=== PATIENT | female | born 1940 | race Caucasian/White ===

== ENCOUNTER 2017-01-18 12:21 | Emergency (ER) | payer OTHER ==
[~2017-01-18] VITALS: Ht 162.6 cm; Wt 68.0 kg
[2017-01-18 12:35] VITALS: BP 67/43; PULSE 61; RESP 16; TEMP 97.6; O2SAT 94
--- NOTE | 2017-01-18 12:45 | NUR ---
# 20 gauge angiocath placed to LFA. Use of asceptic technique. Opsite placed over site. Blood return noted. Blood for lab drawn from site. Flushed with 10 cc of normal saline. No evidence of infiltration noted. Patient tolerated well.
--- NOTE | 2017-01-18 12:45 | NUR ---
Pt placed to ER bed 04 and to gown. Pt report received from ELLIE Goncalves. Pt c/o Left foot injury s/p dropping a jar of peanut butter on foot. Swellin to site, no deformity noted. Pt placed on wire tinner and pt noted to be hypotensive. Pt asymmptomatic. AAOx4, denies dizzyness, denies LOC [employer]. Dr. Rolon notified of findings.
--- NOTE | 2017-01-18 12:45 | NUR ---
Note undone in EDM - 01/18/17 at 1644 by KATE # 18 gauge angiocath placed to LFA. Use of asceptic technique. Opsite placed over site. Blood return noted. Blood for lab drawn from site. Flushed with 10 cc of normal saline. No evidence of infiltration noted. Patient tolerated well.
--- NOTE | 2017-01-18 12:55 | NUR ---
Dr. Rolon at bedside to assess pt.
--- NOTE | 2017-01-18 13:10 | NUR ---
Note undone in EDM - 01/18/17 at 1643 by KATE # 18 gauge angiocath placed to LFA. Use of asceptic technique. Opsite placed over site. Blood return noted. Blood for lab drawn from site. Flushed with 10 cc of normal saline. No evidence of infiltration noted. Patient tolerated well.
[2017-01-18] MEDS ORDERED: NACL 0.9% 1,000 ML IV ONE ×3 (13:15)
[2017-01-18 13:33] LABS: ANION GAP 11 (5-15); BASOPHILS % (AUTO) 0.3 % (0.0-2.0); CALCIUM 9.6 mg/dL (8.4-11.0); CHLORIDE 100 mmol/L (98-107); CREATININE 0.68 mg/dL (0.55-1.30); EOSINOPHILS # (AUTO) 0.1 K/uL (0.0-0.4); EOSINOPHILS % (AUTO) 1.6 % (0.0-4.0); GLUCOSE 129 mg/dL (70-99); HEMATOCRIT 40.4 % (36-48); HEMOGLOBIN 13.2 g/dL (12.0-16.0); LYMPHOCYTES # (AUTO) 1.9 K/uL (1.0-5.5); LYMPHOCYTES % (AUTO) 20.6 % (20.5-51.5); MEAN CORPUSCULAR HEMOGLOBIN 29 pg (27-31); MEAN CORPUSCULAR HGB CONC 33 % (32-36); MEAN CORPUSCULAR VOLUME 88 fL (79.0-98.0); MONOCYTES # (AUTO) 0.6 K/uL (0.0-1.0); MONOCYTES % (AUTO) 6.1 % (1.7-9.3); NEUTROPHILS # (AUTO) 6.7 K/uL (1.8-7.7); NEUTROPHILS % (AUTO) 71.4 % (40.0-70.0); PLATELET COUNT (AUTO) 219 K/uL (130-430); POTASSIUM 3.9 mmol/L (3.5-5.1); RED BLOOD CELL COUNT(AUTO) 4.58 MIL/uL (4.2-6.2); RED CELL DISTRIBUTION WIDTH 12.4 % (9.0-15.0); SODIUM SERUM 138 mmol/L (136-145); UREA NITROGEN, BLOOD 17 mg/dL (8-21); WHITE BLOOD COUNT (AUTO) 9.3 K/uL (4.8-10.8)
[2017-01-18 13:38] LABS: ALANINE AMINOTRANSFERASE 21 U/L (12-78); ALBUMIN 4.1 g/dL (3.4-4.8); ASPARTATE AMINOTRANSFERASE 15 U/L (10-37); TOTAL BILIRUBIN 0.4 mg/dL (0.0-1.0); TOTAL PROTEIN, SERUM 7.2 g/dL (6.4-8.3)
[2017-01-18 13:44] LABS: INR 1.1 (0.8-1.2); PROTHROMBIN TIME 11.6 SECS (9.5-12.5)
[2017-01-18 14:56] LABS: BILIRUBIN,URINE NEGATIVE (NEGATIVE); BLOOD, URINE NEGATIVE (NEGATIVE); CLARITY/URINE CLEAR (CLEAR); COLOR,URINE YELLOW (YELLOW); GLUCOSE,URINE NEGATIVE (NEGATIVE); KETONES,URINE NEGATIVE (NEGATIVE); LEUKOCYTE ESTERASE ,URINE NEGATIVE (NEGATIVE); NITRITE, URINE NEGATIVE (NEGATIVE); PROTEIN URINE NEGATIVE (NEGATIVE); UROBILINOGEN,URINE 0.2 (0.2-1.0)
--- NOTE | 2017-01-18 15:00 | NUR ---
[place]lie [place] in ED - 01/18/17 at 1656 by [email or web address] MONCHO Grande at bedside examining patient.
[2017-01-18 15:48] VITALS: BP 102/78; PULSE 61; RESP 16; TEMP 97.6; O2SAT 94
--- NOTE | 2017-01-18 15:48 | NUR ---
Patient given written and verbal discharge instructions and verbalizes understanding. ER MD Rolon discussed with patient the results and treatment provided. Patient in stable condition. ID arm band removed. IV catheter removed intact and dressing applied, no active bleeding. Patient educated on pain management and to follow up with PMD. Pain Scale 2/10. Opportunity for questions provided and answered.
--- NOTE | 2017-01-18 16:48 | NUR ---
Note undone in EDM - 01/18/17 at 1651 by KATE Pt placed to ER bed 04 and to gown. Pt report received from ELLIE Goncalves. Pt c/o Left foot injury s/p dropping a jar of peanut butter on foot. Swellin to site, no deformity noted. Pt placed on director of cardiac cath lab and pt noted to be hypotensive. Pt asymmptomatic. 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 Dr. Rolon notified of findings.
== END 2017-01-18 15:48 | disposition home or self-care (01) ==
LOC: SED 12:21
DX: M79.672 Pain in left foot (principal); I10 Essential (primary) hypertension; F41.9 Anxiety disorder, unspecified
CPT/HCPCS: 36415; 71010; 73630; 80053; 81003; 83605; 84484; 85025; 85610; 87040; 93005; 96360; 99285; J7030

== ENCOUNTER 2020-02-07 18:42 | Inpatient (IN) | payer OTHER ==
[~2020-02-07] VITALS: Ht 157.5 cm; Wt 65.8 kg
[2020-02-07 18:53] VITALS: BP_SYST 63
[2020-02-07] MEDS ORDERED: NACL 0.9% 1,000 ML IV ONE ×2 (19:00→21:07)
[2020-02-07 19:47] LABS: BASOPHILS # (AUTO) 0.1 K/uL (0.0-0.2); BASOPHILS % (AUTO) 0.7 % (0.0-2.0); EOSINOPHILS # (AUTO) 0.1 K/uL (0.0-0.4); EOSINOPHILS % (AUTO) 1.7 % (0.0-4.0); HEMATOCRIT 33.7 % (36-48); HEMOGLOBIN 11.4 g/dL (12.0-16.0); LYMPHOCYTES # (AUTO) 1.7 K/uL (1.0-5.5); LYMPHOCYTES % (AUTO) 20.1 % (20.5-51.5); MEAN CORPUSCULAR HEMOGLOBIN 30 pg (27-31); MEAN CORPUSCULAR HGB CONC 34 % (32-36); MEAN CORPUSCULAR VOLUME 88 fL (79.0-98.0); MONOCYTES # (AUTO) 0.5 K/uL (0.0-1.0); NEUTROPHILS # (AUTO) 5.9 K/uL (1.8-7.7); NEUTROPHILS % (AUTO) 71.5 % (40.0-70.0); PLATELET COUNT (AUTO) 248 K/uL (130-430); RED BLOOD CELL COUNT(AUTO) 3.84 MIL/uL (4.2-6.2); RED CELL DISTRIBUTION WIDTH 13.2 % (9.0-15.0); WHITE BLOOD COUNT (AUTO) 8.2 K/uL (4.8-10.8)
[2020-02-07 20:11] LABS: ANION GAP 9 (5-15); CALCIUM 9.3 mg/dL (8.4-11.0); CHLORIDE 103 mmol/L (98-107); CREATININE 0.78 mg/dL (0.55-1.30); GLUCOSE 103 mg/dL (70-99); SODIUM SERUM 139 mmol/L (136-145); UREA NITROGEN, BLOOD 16 mg/dL (8-21)
[2020-02-07 20:20] LABS: INR 1.1 (0.8-1.2); PROTHROMBIN TIME 11.1 SECS (9.5-12.5)
[2020-02-07 20:23] LABS: ALANINE AMINOTRANSFERASE 24 U/L (12-78); ALBUMIN 3.6 g/dL (3.4-4.8); ASPARTATE AMINOTRANSFERASE 17 U/L (10-37); TOTAL BILIRUBIN 0.3 mg/dL (0.0-1.0)
[2020-02-07 20:24] LABS: POTASSIUM 2.9 mmol/L (3.5-5.1)
[2020-02-07] MEDS ORDERED: POTASSIUM CHLORIDE 20 MEQ TAB.PRT.SR PO ONE ×2 (20:30→21:15)
[2020-02-07] MEDS ORDERED: BACITRACIN 1 GM OINT TP ONE (21:15)
[2020-02-07 21:18] LABS: BILIRUBIN,URINE NEGATIVE (NEGATIVE); BLOOD, URINE NEGATIVE (NEGATIVE); COLOR,URINE YELLOW (YELLOW); GLUCOSE,URINE NEGATIVE (NEGATIVE); KETONES,URINE NEGATIVE (NEGATIVE); LEUKOCYTE ESTERASE ,URINE 2+ (NEGATIVE); NITRITE, URINE NEGATIVE (NEGATIVE); PROTEIN URINE NEGATIVE (NEGATIVE); UROBILINOGEN,URINE 0.2 (0.2-1.0)
[2020-02-07 21:49] LABS: CLARITY/URINE HAZY (CLEAR)
[2020-02-07 21:55] LABS: BACTERIA,URINE FEW /HPF (None Seen); RBC,URINE 0-3 /HPF (0-3)
[2020-02-07 21:56] LABS: MUCUS,URINE 1+ /LPF (None Seen)
[2020-02-08] VITALS (10 sets, daily range): BP systolic 70–189
[2020-02-08] MEDS: NACL 0.9% 1,000 ML IV SCH ×3 (02:26→20:45)
[2020-02-08] MEDS ORDERED: ALBUTEROL SULFATE 0.083% 2.5 MG/3 ML VIAL.NEB INH PRN (02:45)
[2020-02-08] MEDS ORDERED: ACETAMINOPHEN 325 MG TABLET PO PRN (02:45)
[2020-02-08] MEDS ORDERED: HYDROCORTISONE SOD SUCC 100 MG/2 ML VIAL IVP ONE (02:45)
[2020-02-08] MEDS ORDERED: NS 500 ML IV ONE (02:45)
[2020-02-08] MEDS ORDERED: HYDROcodone/ACETAMIN 5-325 MG TAB (NORCO/ VICODIN) PO PRN (02:45)
[2020-02-08] MEDS: cefTRIAXone 1 GM IVPB PREMIX 50 ML IV SCH ×3 (03:09→21:44)
[2020-02-08] MEDS ORDERED: cefTRIAXone 1 GM IVPB PREMIX 50 ML IV ONE (03:24)
[2020-02-08 06:26] LABS: BASOPHILS % (AUTO) 0.3 % (0.0-2.0); EOSINOPHILS # (AUTO) 0.1 K/uL (0.0-0.4); EOSINOPHILS % (AUTO) 0.8 % (0.0-4.0); HEMATOCRIT 34.6 % (36-48); HEMOGLOBIN 11.6 g/dL (12.0-16.0); LYMPHOCYTES % (AUTO) 11.6 % (20.5-51.5); MEAN CORPUSCULAR HEMOGLOBIN 30 pg (27-31); MEAN CORPUSCULAR HGB CONC 34 % (32-36); MEAN CORPUSCULAR VOLUME 89 fL (79.0-98.0); MONOCYTES # (AUTO) 0.4 K/uL (0.0-1.0); MONOCYTES % (AUTO) 4.4 % (1.7-9.3); NEUTROPHILS # (AUTO) 7.3 K/uL (1.8-7.7); NEUTROPHILS % (AUTO) 82.9 % (40.0-70.0); PLATELET COUNT (AUTO) 251 K/uL (130-430); RED BLOOD CELL COUNT(AUTO) 3.89 MIL/uL (4.2-6.2); RED CELL DISTRIBUTION WIDTH 13.3 % (9.0-15.0); WHITE BLOOD COUNT (AUTO) 8.8 K/uL (4.8-10.8)
[2020-02-08 07:58] LABS: ALANINE AMINOTRANSFERASE 21 U/L (12-78); ALBUMIN 3.7 g/dL (3.4-4.8); ANION GAP 10 (5-15); ASPARTATE AMINOTRANSFERASE 15 U/L (10-37); CALCIUM 8.8 mg/dL (8.4-11.0); CHLORIDE 108 mmol/L (98-107); CREATININE 0.55 mg/dL (0.55-1.30); GLUCOSE 115 mg/dL (70-99); POTASSIUM 3.9 mmol/L (3.5-5.1); SODIUM SERUM 143 mmol/L (136-145); TOTAL BILIRUBIN 0.2 mg/dL (0.0-1.0); UREA NITROGEN, BLOOD 11 mg/dL (8-21)
[2020-02-08] MEDS ORDERED: ASPI-1153 PO (09:51)
[2020-02-08] MEDS ORDERED: PARO-63 PO (09:51)
[2020-02-08] MEDS ORDERED: TRAM100T34 PO (09:51)
[2020-02-08] MEDS ORDERED: SIMV40TA2 PO (09:51)
[2020-02-08] MEDS ORDERED: [UNRECOGNIZED DRUG - CODE] (09:51)
[2020-02-08] MEDS ORDERED: POTASSIUM CHLORIDE 20 MEQ TAB.PRT.SR PO ONE (11:30)
[2020-02-08] MEDS ORDERED: ASPIRIN 81 MG TAB.CHEW PO ONE (18:43)
[2020-02-08] MEDS ORDERED: ATORVASTATIN 20 MG TABLET PO ONE (18:44)
[2020-02-09] MEDS: NACL 0.9% 1,000 ML IV SCH ×2 (00:35→16:45)
[2020-02-09 00:41] VITALS: BP_SYST 165
[2020-02-09 08:00] VITALS: BP_SYST 155
[2020-02-09] MEDS: cefTRIAXone 1 GM IVPB PREMIX 50 ML IV SCH (08:25)
[2020-02-09] MEDS ORDERED: ATORVASTATIN 20 MG TABLET PO SCH (09:00)
[2020-02-09] MEDS ORDERED: ASPIRIN 81 MG TAB.CHEW PO SCH (09:00)
[2020-02-09 12:30] VITALS: BP_SYST 158
[2020-02-09 12:56] VITALS: BP_SYST 148
[2020-02-09 16:45] VITALS: BP_SYST 148
== END 2020-02-09 17:30 | disposition home health service (06) | DRG 872 ==
LOC: SED 18:42 → STU 02-08 00:45
PROVIDERS: ADMIT Internal Medicine Hospice and Palliative Medicine; ATTEND Internal Medicine Hospice and Palliative Medicine
DX: A41.9 Sepsis, unspecified organism (principal); N39.0 Urinary tract infection, site not specified; S01.01XA Laceration without foreign body of scalp, initial encounter; S09.90XA Unspecified injury of head, initial encounter; I10 Essential (primary) hypertension; F41.9 Anxiety disorder, unspecified; W18.39XA Other fall on same level, initial encounter; I65.29 Occlusion and stenosis of unspecified carotid artery; F01.50 Vascular dementia, unspecified severity, without behavioral disturbance, psychotic disturbance, mood disturbance, and anxiety; Y93.89 Activity, other specified; Y92.89 Other specified places as the place of occurrence of the external cause; Z79.82 Long term (current) use of aspirin; Y99.8 Other external cause status; Z79.899 Other long term (current) drug therapy
CPT/HCPCS: 36415; 70450-TC; 71045; 72125-TC; 80053; 81000-TC; 83735-TC; 83880; 84443-TC; 84484; 85025; 85610-TC; 85730-TC; 87081; 87086; 93005; 93306; 96360; 96361; 99285; G0378; J0696; J1720; J7030; J7040